=== PATIENT | female | born 1995 | race Caucasian/White ===

== ENCOUNTER 2017-11-03 07:16 | Inpatient (IN) | payer OTHER ==
[~2017-11-03 07:16] MED LIST: OXYTOCIN 30 UNITS/LR 500 ML BAG IV
[2017-11-03] MEDS ORDERED: CEFAZOLIN 2 GM/50 ML (PMX) 50 ML IV (07:30)
[2017-11-03] MEDS ORDERED: CARBOPROST 250 MCG INJ IM ×3 (07:30→15:00)
[2017-11-03] MEDS ORDERED: MISOPROSTOL 200 MCG TAB PR ×3 (07:30→15:00)
[2017-11-03] MEDS ORDERED: OXYTOCIN 30 UNITS/LR 500 ML IV ×5 (07:30→15:00)
[2017-11-03] MEDS ORDERED: METHYLERGONOVINE 0.2 MG INJ IM ×3 (07:30→15:00)
[2017-11-03] MEDS: LACTATED RINGER'S 1,000 ML IV ×4 (07:51→17:07)
[2017-11-03 08:19] LABS: ADD MAN DIFF? NO
[2017-11-03 08:23] LABS: BASOPHILS % 0.3 % (0.0-2.0); EOSINOPHILS # 0.1 10^3/ul (0.0-0.5); EOSINOPHILS % 1.2 % (0.0-7.0); HEMATOCRIT 33.5 % (37.0-47.0); HEMOGLOBIN 10.6 g/dl (12.0-16.0); LYMPHOCYTES # 1.6 10^3/ul (0.8-2.9); LYMPHOCYTES % 20.9 % (15.0-51.0); MEAN CORPUSCULAR HGB CONC 31.6 g/dl (32.0-37.0); MEAN CORPUSCULAR VOLUME 75.8 fl (82.0-101.0); MEAN PLATELET VOLUME 11.9 fl (7.4-10.4); MONOCYTE # 0.7 10^3/ul (0.3-0.9); MONOCYTES % 9.6 % (0.0-11.0); NEUTROPHILS % 67.5 % (39.0-77.0); PLATELET COUNT 176 10^3/UL (140-415); RED BLOOD COUNT 4.42 10^6/ul (4.20-5.40); RED CELL DISTRIBUTION WIDTH 18.3 % (11.5-14.5)
[2017-11-03 08:23] LABS: WHITE BLOOD COUNT 7.4 10^3/ul (4.8-10.8)
[2017-11-03 08:40] LABS: INR 1.02; PROTIME 13.5 Sec (11.9-14.9); PT RATIO 1.1
[2017-11-03 08:41] LABS: PARTIAL THROMBOPLASTIN TIME 25.5 Sec (25.0-35.0)
[2017-11-03 09:22] LABS: HEPATITIS B SURFACE ANTIGEN NEGATIVE (NEGATIVE)
[2017-11-03] MEDS ORDERED: morphine SULFATE/PF (10 MG/10 ML) INJ (10:58)
[2017-11-03] MEDS ORDERED: PHENYLephrine (100 MCG/ML) 5ML SYG ×5 (11:08→12:04)
[2017-11-03] MEDS ORDERED: FENTAnyl 50 MCG/ML VIAL ×2 (11:35→11:46)
[2017-11-03] MEDS ORDERED: OXYCODONE/ACETAMINOPHEN (5/325) TAB PO ×2 (12:30)
[2017-11-03] MEDS ORDERED: LANOLIN 7 GM TUBE TOP (12:30)
[2017-11-03] MEDS ORDERED: KETOROLAC 30 MG INJ IV (13:00)
[2017-11-03] MEDS ORDERED: FENTAnyl 50 MCG/ML VIAL IV ×2 (13:00)
[2017-11-03] MEDS ORDERED: ONDANSETRON 4 MG INJ IV ×2 (13:00)
[2017-11-03] MEDS ORDERED: DIPHENHYDRAMINE 50 MG INJ IV ×2 (13:00)
[2017-11-03] MEDS ORDERED: METOCLOPRAMIDE 10 MG INJ IV (13:00)
[2017-11-03] MEDS ORDERED: HYDROmorphONE (0.2 MG/ML) 10ML SYG IV ×2 (13:00)
[2017-11-03] MEDS ORDERED: NALOXONE (0.4 MG/ML) INJ IV (13:00)
[2017-11-03] MEDS ORDERED: HYDROmorphONE 0.5 MG/0.5 ML SYG IV ×2 (13:00)
[2017-11-03] MEDS ORDERED: IBUPROFEN 800 MG TAB PO (14:00)
[2017-11-03] MEDS: OXYTOCIN 30 UNITS/LR 500 ML IV (14:47)
[2017-11-03] MEDS ORDERED: SENNA/DOCUSATE NA (8.6MG/50MG) TAB PO (21:00)
[2017-11-03 21:47] LABS: RAPID PLASMA REAGIN NONREACTIVE (NR)
[2017-11-03] MEDS: SENNA/DOCUSATE NA (8.6MG/50MG) TAB PO (21:47)
[2017-11-04] MEDS: LACTATED RINGER'S 1,000 ML IV ×3 (00:58→22:47)
[2017-11-04] MEDS: KETOROLAC 30 MG INJ IV (07:46)
[2017-11-04] MEDS: SENNA/DOCUSATE NA (8.6MG/50MG) TAB PO ×2 (07:47→21:39)
[2017-11-04 08:37] LABS: ADD MAN DIFF? NO
[2017-11-04 08:45] LABS: BASOPHILS % 0.3 % (0.0-2.0); EOSINOPHILS % 0.2 % (0.0-7.0); HEMATOCRIT 27.8 % (37.0-47.0); LYMPHOCYTES % 11.5 % (15.0-51.0); MEAN CORPUSCULAR HEMOGLOBIN 24.5 pg (29.0-33.0); MEAN CORPUSCULAR HGB CONC 32.4 g/dl (32.0-37.0); MEAN CORPUSCULAR VOLUME 75.7 fl (82.0-101.0); MEAN PLATELET VOLUME 11.8 fl (7.4-10.4); MONOCYTE # 0.7 10^3/ul (0.3-0.9); MONOCYTES % 7.8 % (0.0-11.0); NEUTROPHIL # 6.9 10^3/ul (1.6-7.5); NEUTROPHILS % 79.9 % (39.0-77.0); PLATELET COUNT 148 10^3/UL (140-415); RED BLOOD COUNT 3.67 10^6/ul (4.20-5.40); RED CELL DISTRIBUTION WIDTH 18.2 % (11.5-14.5)
[2017-11-04 08:45] LABS: WHITE BLOOD COUNT 8.6 10^3/ul (4.8-10.8)
[2017-11-04] MEDS: IBUPROFEN 800 MG TAB PO ×2 (13:34→21:39)
[2017-11-04] MEDS: OXYCODONE/ACETAMINOPHEN (5/325) TAB PO (14:59)
[2017-11-04] MEDS: LANOLIN 7 GM TUBE TOP (22:29)
[2017-11-05] MEDS: IBUPROFEN 800 MG TAB PO ×3 (05:32→22:02)
[2017-11-05] MEDS: LACTATED RINGER'S 1,000 ML IV ×3 (06:47→22:02)
[2017-11-05] MEDS: SENNA/DOCUSATE NA (8.6MG/50MG) TAB PO ×2 (09:18→22:02)
[2017-11-05] MEDS: OXYCODONE/ACETAMINOPHEN (5/325) TAB PO (09:18)
[2017-11-06] MEDS: IBUPROFEN 800 MG TAB PO ×2 (05:34→15:05)
[2017-11-06] MEDS: LACTATED RINGER'S 1,000 ML IV ×2 (06:47→14:47)
[2017-11-06] MEDS: SENNA/DOCUSATE NA (8.6MG/50MG) TAB PO (08:51)
[2017-11-06] MEDS ORDERED: DIPHTH/TET/ACEL PERTUSS (ADULT) 0.5 ML VIAL IM* (09:00)
[2017-11-06] MEDS: DIPHTH/TET/ACEL PERTUSS (ADULT) 0.5 ML VIAL IM* (09:00)
== END 2017-11-06 16:30 | disposition home or self-care (01) | DRG 766 ==
LOC: L-D 07:16 → PP1 14:37
PROVIDERS: Obstetrics & Gynecology
PROC: 10D00Z1 Extraction of Products of Conception, Low, Open Approach (ICD-10-PCS; principal; 2017-11-03 10:00)
DX: O34.211 Maternal care for low transverse scar from previous cesarean delivery (principal); E66.9 Obesity, unspecified; O99.214 Obesity complicating childbirth; Z37.0 Single live birth; Z3A.39 39 weeks gestation of pregnancy; Z68.34 Body mass index [BMI] 34.0-34.9, adult
CPT/HCPCS: 85025; 85610; 85730; 86592; 86850; 86900; 86901; 87340; 90715; 99464